=== PATIENT | female | born 1945 | race Caucasian/White ===

== ENCOUNTER 2019-10-20 17:19 | Emergency (ER) | payer MEDICARE ==
--- NOTE | 2019-10-20 17:50 | ER Document Report ---
ED Medical Screen (RME) - General Chief Complaint: Abnormal Lab Results Stated Complaint: ABNORMAL LABS Time Seen by Provider: 10/20/19 17:30 Notes: Patient is a 74-year-old female with a history of congestive heart failure, and brain aneurysm who presents the emergency department with a chief complaint of confusion. Patient reports she has been confused for about 1 week. Patient reports she is also having bilateral leg cramping tremors and blurred vision. Patient reports she does have a history of a brain aneurysm. Patient states she did have imaging of the aneurysm done at the end of September in [place]. Patient reports nausea without vomiting. Patient did see her primary care physician on Wednesday and was told she had a slightly elevated white blood cell count, elevated creatinine and slight anemia. She was told to decrease her hydrochlorothiazide and to have repeat labs in 1 month. Patient denies fever. Son at the bedside states that the patient is talking out of her head and not acting her normal. He does report this is been going for 1 week and continues to get worse. Physical Exam - Vital signs Vitals: Temp Pulse Resp BP Pulse Ox 97.4 F 78 16 151/68 H 98 10/20/19 17:29 10/20/19 17:29 10/20/19 17:29 10/20/19 17:29 10/20/19 17:29 Course - Re-evaluation Re-evalutation: 10/20/19 17:50 I have greeted and performed a rapid initial assessment of this patient. A comprehensive ED assessment and evaluation of the patient, analysis of test results and completion of the medical decision making process will be conducted by additional ED providers. - Vital Signs Vital signs: Temp Pulse Resp BP Pulse Ox 97.4 F 78 16 151/68 H 98 10/20/19 17:29 10/20/19 17:29 10/20/19 17:29 10/20/19 17:29 10/20/19 17:29
[2019-10-20 18:19] LABS: APPEARANCE,URINE SLIGHTLY-CLOUDY; BILIRUBIN,URINE NEGATIVE (NEGATIVE); COLOR,URINE YELLOW; GLUCOSE, URINE NEGATIVE (NEGATIVE); KETONES,URINE NEGATIVE (NEGATIVE); LEUKOCYTE ESTERASE,URINE MODERATE (NEGATIVE); NITRITE,URINE NEGATIVE (NEGATIVE); PROTEIN,URINE NEGATIVE (NEGATIVE); URINE SPECIFIC GRAVITY 1.012; UROBILINOGEN,URINE NEGATIVE mg/dL (<2.0)
[2019-10-20 18:29] LABS: ABSOLUTE BASOPHILS # (AUTO) 0.1 10^3/uL (0.0-0.2); ABSOLUTE LYMPHOCYTES (AUTO) 4.2 10^3/uL (0.5-4.7); ABSOLUTE MONOCYTES (AUTO) 0.9 10^3/uL (0.1-1.4); ABSOLUTE NEUT (AUTO) 4.9 10^3/uL (1.7-8.2); BASOPHILS % (AUTO) 1.2 % (0-2); HEMATOCRIT 35.1 % (36.0-47.0); HEMOGLOBIN 11.4 g/dL (12.0-15.5); LYMPHOCYTES % (AUTO) 37.9 % (13-45); MEAN CORPUSCULAR HEMOGLOBIN 29.7 pg (27.0-33.4); MEAN CORPUSCULAR HGB CONC 32.5 g/dL (32.0-36.0); MEAN CORPUSCULAR VOLUME 91 fl (80-97); MONOCYTES % (AUTO) 7.8 % (3-13); PLATELET COUNT 409 10^3/uL (150-450); RED BLOOD COUNT 3.85 10^6/uL (3.72-5.28); RED CELL DISTRIBUTION WIDTH 13.5 % (11.5-14.0); SEGMENTED NEUTROPHILS % (AUTO) 44.1 % (42-78); TOTAL CELLS COUNTED % (AUTO) 100 %; WHITE BLOOD COUNT 11.1 10^3/uL (4.0-10.5)
[2019-10-20 18:32] LABS: ALBUMIN 4.6 g/dL (3.5-5.0); ALKALINE PHOSPHATASE 71 U/L (38-126); ANION GAP 12 (5-19); ASPARTATE AMINO TRANSFERASE 28 U/L (14-36); BILIRUBIN,DIRECT 0.3 mg/dL (0.0-0.4); BILIRUBIN,TOTAL 0.6 mg/dL (0.2-1.3); BLOOD UREA NITROGEN 43 mg/dL (7-20); CALCIUM 10.3 mg/dL (8.4-10.2); CARBON DIOXIDE 21 mmol/L (22-30); CHLORIDE 112 mmol/L (98-107); GLUCOSE 106 mg/dL (75-110); POTASSIUM 4.7 mmol/L (3.6-5.0); TOTAL PROTEIN 8.4 g/dL (6.3-8.2)
--- NOTE | 2019-10-20 18:45 | RADIOLOGY REPORT (SQ) ---
EXAM DESCRIPTION: CHEST 2 VIEWS COMPLETED DATE/TIME: 10/20/2019 6:29 pm REASON FOR STUDY: confusion x 1 week, hx. aneurysm COMPARISON: None. EXAM PARAMETERS: NUMBER OF VIEWS: two views TECHNIQUE: Digital Frontal and Lateral radiographic views of the chest acquired. RADIATION DOSE: NA LIMITATIONS: none FINDINGS: LUNGS AND PLEURA: Mild hyperexpansion of the lungs. No infiltrate, effusion, or mass. MEDIASTINUM AND HILAR STRUCTURES: No masses or contour abnormalities. HEART AND VASCULAR STRUCTURES: Heart normal size. No evidence for failure. BONES: No acute findings. HARDWARE: None in the chest. OTHER: No other significant finding. IMPRESSION: Mild chronic lung changes with no acute cardiopulmonary findings. TECHNICAL DOCUMENTATION: JOB ID: [id number] [employer]- All Rights Reserved Reading location - IP/workstation name: [email or web address]
[2019-10-20 18:56] LABS: NT PRO BNP 321 pg/mL (<450)
[2019-10-20 18:59] LABS: TROPONIN I < 0.012 ng/mL
--- NOTE | 2019-10-20 19:06 | RADIOLOGY REPORT (SQ) ---
EXAM DESCRIPTION: CT HEAD WITHOUT COMPLETED DATE/TIME: 10/20/2019 6:55 pm REASON FOR STUDY: confusion x 1 week, hx. aneurysm COMPARISON: None. TECHNIQUE: Axial images acquired through the brain without intravenous contrast. Images reviewed wi th bone, brain and subdural windows. Additional sagittal and coronal reconstructions were generated. Images stored on PACS. All CT scanners at this facility use dose modulation, iterative reconstruction, and/or weight based d osing when appropriate to reduce radiation dose to as low as reasonably achievable (ALARA). [facility]: Dose Right [facility]: CareDose [facility]: Dose Right [facility]: Teradose 4D [facility]: Smart [place] RADIATION DOSE: CT Rad equipment meets quality standard of care and radiation dose reduction techniq ues were employed. CTDIvol: 53.2 mGy. DLP: 964 mGy-cm. mGy. LIMITATIONS: None. FINDINGS: VENTRICLES: Normal size and contour. CEREBRUM: No masses. No hemorrhage. No midline shift. No evidence for acute infarction. Normal gra y/white matter differentiation. No areas of low density in the white matter. CEREBELLUM: No masses. No hemorrhage. No alteration of density. No evidence for acute infarction. EXTRAAXIAL SPACES: No fluid collections. No masses. ORBITS AND GLOBE: No intra- or extraconal masses. Normal contour of globe without masses. CALVARIUM: No fracture. PARANASAL SINUSES: No fluid or mucosal thickening. SOFT TISSUES: No mass or hematoma. OTHER: No other significant finding. IMPRESSION: NORMAL BRAIN CT WITHOUT CONTRAST. EVIDENCE OF ACUTE STROKE: NO. COMMENT: Quality ID # [id number]: Final reports with documentation of one or more dose reduction techniques (e.g., Automated exposure control, adjustment of the mA and/or kV according to patient size, use of iterative reconstruction technique) TECHNICAL DOCUMENTATION: JOB ID: [id number] [employer]- All Rights Reserved Reading location - IP/workstation name: [email or web address]
[2019-10-20] MEDS ORDERED: NORMAL SALINE 500 ML IV ONE (20:55)
--- NOTE | 2019-10-20 20:56 | ER Document Report ---
ED General <MATT MCKINNEY - Last Filed: 10/21/19 06:35> <DEDE COLLINS - Last Filed: 10/21/19 10:16> - General Chief Complaint: Abnormal Lab Results Stated Complaint: ABNORMAL LABS Time Seen by Provider: 10/20/19 17:30 Notes: Patient is a 74-year-old female that comes emergency department for chief complaint of progressive general decline. Son states that she is unpredictable, gets up in rooms in all times of the day, sometimes trips and falls because she is unsteady, has multiple abrasions over her hands and arms because of this. He states that intermittently she will be confused as well, suddenly forgetting what she was doing, where she is, or saying random things. However she was "snap out of this" and normalized for the time being although this is reoccurring. He states he has noticed this for some time but it has been noticeably worse over the past week. Patient tells me she has no current pain, she does not have any come plaints currently. Patient is able to tell me her current location, current year, current president, and recent events. Son states that at the moment patient is actually at her baseline. Patient has a past medical history of hypertension, brain aneurysm, chronic pain, anxiety/depression, GERD. Medications include Ativan, baclofen, duloxetine, oxycodone. Tetanus reportedly up-to-date. (MATT MCKINNEY) - Related Data Allergies/Adverse Reactions: ciprofloxacin [From Cipro] Allergy (Verified 10/20/19 17:48) meperidine [From Demerol] Allergy (Verified 10/20/19 17:48) morphine Allergy (Verified 10/20/19 17:48) NSAIDS (Non-Steroidal Anti-Inflamma Allergy (Verified 10/20/19 17:48) oxycodone [From OxyContin] Allergy (Verified 10/20/19 17:48) Past Medical History - General Information source: Patient, Relative - Social History Smoking Status: Never Smoker Chew tobacco use (# tins/day): No Frequency of alcohol use: None Drug Abuse: None Lives with: Family Family History: Reviewed & Not Pertinent Patient has suicidal ideation: No Patient has homicidal ideation: No - Past Medical History Cardiac Medical History: Reports: Hx Hypercholesterolemia, Hx Hypertension GI Medical History: Reports: Hx Gastroesophageal Reflux Disease Psychiatric Medical History: Reports: Hx Depression - anxiety Past Surgical History: Reports: Hx Appendectomy, Hx Cholecystectomy, Hx Hysterectomy <MATT MCKINNEY - Last Filed: 10/21/19 06:35> Review of Systems - Review of Systems Constitutional: See HPI EENT: No symptoms reported Cardiovascular: No symptoms reported Respiratory: No symptoms reported Gastrointestinal: No symptoms reported Genitourinary: No symptoms reported Female Genitourinary: No symptoms reported Musculoskeletal: No symptoms reported Skin: No symptoms reported Hematologic/Lymphatic: No symptoms reported Neurological/Psychological: See HPI <MATT MCKINNEY - Last Filed: 10/21/19 06:35> Physical Exam <MATT MCKINNEY - Last Filed: 10/21/19 06:35> - Vital signs Vitals: Temp Pulse Resp BP Pulse Ox 97.4 F 78 16 151/68 H 98 10/20/19 17:29 10/20/19 17:29 10/20/19 17:29 10/20/19 17:29 10/20/19 17:29 - Notes Notes: GENERAL: Alert, interacts well. No acute distress. HEAD: Normocephalic, atraumatic. EYES: Pupils equal, round, and reactive to light. Extraocular movements intact. ENT: Oral mucosa moist, tongue midline. Oropharynx unremarkable. Airway patent. NECK: Full range of motion. Supple. Trachea midline. LUNGS: Clear to auscultation bilaterally, no wheezes, rales, or rhonchi. No respiratory distress. HEART: Regular rate and rhythm. No murmur ABDOMEN: Soft, non-tender. Non-distended. Bowel sounds present in all 4 quadrants. GENITOURINARY: Deferred EXTREMITIES: Moves all 4 extremities spontaneously. No edema, normal radial and dorsalis pedis pulses bilaterally. No cyanosis. BACK: no cervical, thoracic, lumbar midline tenderness. No saddle anesthesia, normal distal neurovascular exam. Moves all extremities in full range of motion. NEUROLOGICAL: Alert and oriented x3. Normal speech. Cranial nerves II through XII grossly intact. PSYCH: Normal affect, normal mood. SKIN: Old healing skin tears on both hands, no erythema, tenderness, swelling, or other abnormality noted. (MATT MCKINNEY) Course - Laboratory Result Diagrams: 10/20/19 18:03 10/20/19 18:03 <MATT MCKINNEY - Last Filed: 10/21/19 06:35> - Laboratory Result Diagrams: 10/20/19 18:03 10/20/19 18:03 <DEDE COLLINS - Last Filed: 10/21/19 10:16> - Re-evaluation Re-evalutation: Patient smiling, talkative, interactive, well-appearing. She is completely oriented. She has a normal neurologic exam. Son states that at the moment she is at her baseline but there are times when she is confused and this is becoming more frequent. I suspect this is progressive decline. CAT scan of the head is negative, chest x-ray unremarkable, CBC with mild leukocytosis and mild elevation of eosinophils. Chemistry shows mildly elevated creatinine and elevated BUN, patient was given some IV fluids. Urinalysis unremarkable. EKG nonspecific. Vital signs unremarkable. On reevaluation patient has no complai nts. I discussed with son. He states that he has to leave, he does not have a way to come back tonight but he is going with his ride, he does not have a license to drive. He states that he cannot watch her tonight, he has to get some sleep, he is exhausted because she is constantly up and about. He states that he needs help placing her in a long-term care facility. He requests that she stay here tonight and we consult case management in the morning after I discussed this. Patient does not meet admission criteria based on her evaluation and progressive slow decline. Patient is very pleasant and agreeable with this, states understanding, she is awaiting case management consult in the morning. Son left multiple phone numbers: [phone], [phone], (MATT MCKINNEY) - Vital Signs Vital signs: Temp Pulse Resp BP Pulse Ox 97.7 F 78 20 138/80 H 97 10/21/19 06:33 10/20/19 17:29 10/21/19 09:01 10/21/19 09:01 10/21/19 09:01 - Laboratory Laboratory results interpreted by me: 10/20/19 10/20/19 10/20/19 17:51 18:03 18:03 WBC 11.1 H Hgb 11.4 L Hct 35.1 L Eos % (Auto) 9.0 H Absolute Eos (auto) 1.0 H Chloride 112 H Carbon Dioxide 21 L BUN 43 H Creatinine 1.45 H Est GFR ( Amer) 42 L Est GFR (MDRD) Non-Af 35 L Calcium 10.3 H Total Protein 8.4 H Ur Leukocyte Esterase MODERATE H - EKG Interpretation by Me Additional EKG results interpreted by me: EKG shows sinus rhythm at a rate of 63, left bundle branch block, inverted T waves in lead III but no T wave inversions or ST segment changes in consecutive leads. Left axis deviation. No comparison from prior. (MATT MCKINNEY) Discharge <MATT MCKINNEY - Last Filed: 10/21/19 06:35> <DEDE COLLINS - Last Filed: 10/21/19 10:16> - Discharge Clinical Impression: Intermittent confusion, Skin tear Condition: Stable Disposition: HOME, SELF-CARE Additional Instructions: *You have been evaluated for intermittent confusion *Utilize the walker whenever ambulating *Bedside commode *Follow up with your provider within 1 week for full physical and evaluation *Take medication as prescribed *Return to ED for worsening condition, changes, needs Prescriptions: Walker [Ultra-Light Rollator] 1 each MC DAILY #1 each Forms: Elevated Blood Pressure
--- NOTE | 2019-10-20 23:59 | EKG REPORT ---
SEVERITY:- ABNORMAL ECG - SINUS RHYTHM LEFT BUNDLE BRANCH BLOCK : Confirmed by: Felicity Lewis MD 20-Oct-2019 23:58:50
[2019-10-21] MEDS ORDERED: LORAZEPAM 1 MG TABLET PO ONE (01:02)
--- NOTE | 2019-10-21 08:05 | ER Document Report ---
Doctor's Note Notes: 10/21/19 08:00 Received report from CASSANDRA Lorenz. Chart reviewed, rounded on patient waiting for case management. Patient sleeping soundly in no distress respiratory rate even unlabored. Slight leukocytosis BUN/creatinine elevated patient has received fluids. CT and chest x-ray negative 10/21/19 09:54 chef manager and son in the patient's room. The plan is to discharge patient home with son, write orders for a walker, bedside commode and look for community resources. Patient reports she feels good about plan of care. PHYSICAL EXAMINATION: GENERAL: Nontoxic looking, no distress answers questions appropriately HEAD: Atraumatic, normocephalic. EYES: Pupils right slightly smaller than left, reactive to light, extraocular movements intact, sclera anicteric, conjunctiva are normal. ENT: nares patent, Moist mucous membranes. NECK: Normal range of motion, supple without lymphadenopathy LUNGS: Respiratory rate even unlabored HEART: Regular rate ABDOMEN: Soft, no tenderness. No guarding, no rebound EXTREMITIES: Normal range of motion, no pitting edema. No cyanosis. NEUROLOGICAL: Cranial nerves grossly intact. PSYCH: Normal mood, normal affect. SKIN: Warm, Dry, normal turgor, multiple skin tears to forearms, no active bleeding
[2019-10-21 11:07] VITALS: BP 119/71
== END 2019-10-21 11:06 | disposition home or self-care (01) ==
LOC: ER 17:19
DX: R41.0 Disorientation, unspecified (principal); S60.512A Abrasion of left hand, initial encounter; S60.511A Abrasion of right hand, initial encounter; S40.812A Abrasion of left upper arm, initial encounter; S40.811A Abrasion of right upper arm, initial encounter; W01.0XXA Fall on same level from slipping, tripping and stumbling without subsequent striking against object, initial encounter; I50.9 Heart failure, unspecified; H53.8 Other visual disturbances; R25.2 Cramp and spasm; E78.00 Pure hypercholesterolemia, unspecified; I10 Essential (primary) hypertension; Z88.3 Allergy status to other anti-infective agents; Z88.6 Allergy status to analgesic agent; Z90.49 Acquired absence of other specified parts of digestive tract; Z90.710 Acquired absence of both cervix and uterus
CPT/HCPCS: 99284; 96360; 36415; 87086; 85025; 80053; 81001; 84484; 83880; 71046; 70450; 93005; 93010; A9270; J7040